=== PATIENT | male | born 1995 | race Caucasian/White ===

== ENCOUNTER 2016-12-17 03:44 | Inpatient (IN) | payer MEDICAID, OTHER ==
[~2016-12-17] VITALS: Ht 172.7 cm; Wt 49.5 kg
[2016-12-17] MEDS ORDERED: ESCI10TA55 PO (03:59)
[2016-12-17] MEDS ORDERED: INFL100V IV (03:59)
[2016-12-17] MEDS ORDERED: AZAT50TA PO (03:59)
[2016-12-17] MEDS ORDERED: NS IV 1000 ML 1,000 ML IV ONE (04:15)
[2016-12-17] MEDS ORDERED: fentaNYL INJECTION 100 MCG/2 ML AMP IVP ONE ×2 (04:15→06:00)
[2016-12-17 04:32] LABS: BASOPHILS % (AUTO) 0 % (0-10); EOSINOPHILS % (AUTO) 1 % (0-10); LYMPHOCYTES # (AUTO) 0.7 X 10^3 (1.0-4.0); LYMPHOCYTES % (AUTO) 17 % (12-44); MEAN CORPUSCULAR HEMOGLOBIN 30 PG (25-34); MEAN CORPUSCULAR HGB CONC 33 G/DL (32-36); MEAN CORPUSCULAR VOLUME 92 FL (80-99); MEAN PLATELET VOLUME 7.8 FL (7.4-10.4); MONOCYTES # (AUTO) 0.4 X 10^3 (0.0-1.0); MONOCYTES % (AUTO) 9 % (0-12); NEUTROPHILS # (AUTO) 3.2 X 10^3 (1.8-7.8); NEUTROPHILS % (AUTO) 74 % (42-75); PLATELET COUNT 356 10^3/uL (130-400); RED BLOOD COUNT 2.88 10^6/uL (4.35-5.85); RED CELL DISTRIBUTION WIDTH 20.9 % (10.0-14.5); WHITE BLOOD COUNT 4.3 10^3/uL (4.3-11.0)
--- NOTE | 2016-12-17 04:40 | ED Abdominal Pain ---
General Chief Complaint: Abdominal/GI Problems Stated Complaint: AB PAIN Nursing Triage Note: c/o abdomen pain that goes into testicles Sepsis Screen: No Definite Risk Source of Information: Patient Exam Limitations: No Limitations History of Present Illness Time Seen By Provider: 03:50 Initial Comments This 21-year-old young man is brought to the emergency room by his mother with complaints of abdominal pain that started about 4 days ago and became intense tonight around 01:00. Patient's history is sometimes a little bit distorted per his mother as he has mental retardation. He has a history of Crohn's disease and has had complications in the past including colitis with colon resection. He is on chronic immunosuppressive therapy. He is afebrile but is tachycardic. He denies any hematuria or hematochezia. He states pain is focused in the suprapubic and right lower quadrant regions but he is diffusely tender on exam. Allergies and Home Medications Allergies Coded Allergies: morphine (Verified Allergy, Unknown, 12/17/16) Home Medications Azathioprine 50 Mg Tablet, #60 (Reported) Escitalopram Oxalate 10 Mg Tablet, #30 (Reported) Infliximab 100 Mg Soln, 100 MG IV, (Reported) Review of Systems Constitutional: no symptoms reported EENTM: No Symptoms Reported Respiratory: No Symptoms Reported Cardiovascular: No Symptoms Reported Gastrointestinal: See HPI Genitourinary: No Symptoms Reported Musculoskeletal: no symptoms reported Skin: no symptoms reported Psychiatric/Neurological: See HPI Endocrine: No Symptoms Reported Past Hbfuxdp-Jasgbb-Cvwcjb Hx Patient Social History Alcohol Use: Denies Use Recreational Drug Use: No Smoking Status: Never a Smoker Recent Foreign Travel: No Contact w/Someone Who Travel: No Recent Infectious Disease Expo: No Recent Hopitalizations: No Surgeries HX Surgeries: Yes Surgeries: Abdominal (colectomy) Respiratory Hx Respiratory Disorders: No Cardiovascular Hx Cardiac Disorders: No Neurological Hx Neurological Disorders: Yes (mental retardation) Genitourinary Hx Genitourinary Disorders: No Gastrointestinal Hx Gastrointestinal Disorders: Yes Gastrointestinal Disorders: Crohns Disease Musculoskeletal Hx Musculoskeletal Disorders: No Endocrine Hx Endocrine Disorders: No HEENT HX ENT Disorders: No Cancer Hx Cancer: No Psychosocial Hx Psychiatric Problems: Yes (mental retardation) Behavioral Health Disorders: Depression Physical Exam Vital Signs VS - Last 72 Hours, by Label 12/17/16 03:57 Temp 98.4 Pulse 109 Resp 18 B/P (MAP) 121/81 Pulse Ox 97 Capillary Refill : Less Than 3 Seconds General Appearance: WD/WN, cachetic, mild distress HEENT: PERRL/EOMI, normal ENT inspection, pharynx normal Neck: normal inspection Respiratory: lungs clear, normal breath sounds, no respiratory distress, no accessory muscle use Cardiovascular: regular rate, rhythm, no edema, no murmur Gastrointestinal: abnormal bowel sounds (hyperactive bowel sounds), distended, tenderness (diffuse) Extremities: normal inspection, no pedal edema Male: normal genitalia, no hernia 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, alert, normal mood/affect, oriented x 3 Skin: warm/dry, pallor Progress/Results/Core Measures Results/Orders Lab Results Laboratory Tests Test 12/17/16 04:20 Range/Units White Blood Count 4.3 4.3-11.0 10^3/uL Red Blood Count 2.88 L 4.35-5.85 10^6/uL Hemoglobin 8.6 L 13.3-17.7 G/DL Hematocrit 26 L 40-54 % Mean Corpuscular Volume 92 80-99 FL Mean Corpuscular Hemoglobin 30 25-34 PG Mean Corpuscular Hemoglobin Concent 33 32-36 G/DL Red Cell Distribution Width 20.9 H 10.0-14.5 % Platelet Count 356 130-400 10^3/uL Mean Platelet Volume 7.8 7.4-10.4 FL Neutrophils (%) (Auto) 74 42-75 % Lymphocytes (%) (Auto) 17 12-44 % Monocytes (%) (Auto) 9 0-12 % Eosinophils (%) (Auto) 1 0-10 % Basophils (%) (Auto) 0 0-10 % Neutrophils # (Auto) 3.2 1.8-7.8 X 10^3 Lymphocytes # (Auto) 0.7 L 1.0-4.0 X 10^3 Monocytes # (Auto) 0.4 0.0-1.0 X 10^3 Eosinophils # (Auto) 0.0 0.0-0.3 10^3/uL Basophils # (Auto) 0.0 0.0-0.1 10^3/uL Erythrocyte Sedimentation Rate 68 H 0-15 MM/HR Sodium Level 133 L 135-145 MMOL/L Potassium Level 3.6 3.6-5.0 MMOL/L Chloride Level 101 98-107 MMOL/L Carbon Dioxide Level 23 21-32 MMOL/L Anion Gap 9 5-14 MMOL/L Blood Urea Nitrogen 13 7-18 MG/DL Creatinine 0.60 0.60-1.30 MG/DL Estimat Glomerular Filtration Rate > 60 BUN/Creatinine Ratio 22 Glucose Level 133 H 70-105 MG/DL Calcium Level 7.7 L 8.5-10.1 MG/DL Total Bilirubin 0.5 0.1-1.0 MG/DL Aspartate Amino Transf (AST/SGOT) 21 5-34 U/L Alanine Aminotransferase (ALT/SGPT) 21 0-55 U/L Alkaline Phosphatase 114 40-136 U/L C-Reactive Protein High Sensitivity 12.80 H 0.00-0.50 MG/DL Total Protein 5.8 L 6.4-8.2 GM/DL Albumin 2.0 L 3.2-4.5 GM/DL Lipase 4 L 8-78 U/L My Orders Orders - DARRYL STOVALL MD Ua Culture If Indicated (12/17/16 03:50) Cbc With Automated Diff (12/17/16 04:15) Comprehensive Metabolic Panel (12/17/16 04:15) Hs C Reactive Protein (12/17/16 04:15) Erythrocyte Sedimentation Rate (12/17/16 04:15) Saline Lock/Iv-Start (12/17/16 04:15) Ns Iv 1000 Ml (Sodium Chloride 0.9%) (12/17/16 04:15) Fentanyl Injection (Sublimaze Injection (12/17/16 04:15) Ct Abdomen/Pelvis W (12/17/16 04:27) Lipase (12/17/16 04:40) Blood Culture (12/17/16 05:46) Lactic Acid Analyzer (12/17/16 05:46) Piperacillin Sodium/Tazobactam (Zosyn Vi (12/17/16 06:00) Medications Given in ED Current Medications Medications Dose Ordered Sig/Jose Route Start Time Stop Time Status Last Admin Dose Admin Fentanyl Citrate 50 mcg ONCE ONCE IVP 12/17/16 04:15 12/17/16 04:16 DC 12/17/16 04:25 50 MCG Sodium Chloride 1,000 ml @ 0 mls/hr Q0M ONCE IV 12/17/16 04:15 7/16/17 04:16 DC 12/17/16 04:24 0 MLS/HR Vital Signs/I&O Vital Sign - Last 12Hours 12/17/16 03:57 Temp 98.4 Pulse 109 Resp 18 B/P (MAP) 121/81 Pulse Ox 97 Blood Pressure Mean: 94 Progress Note #1: Time: 04:39 Progress Note Patient is receiving IV fluids as he is tachycardic. Fentanyl is being administered for initial pain treatment. CT of the abdomen and pelvis has been ordered due to his distention and degree of tenderness on exam. Progress Note #2: Time: 05:49 Progress Note Pain is much improved after fentanyl. CT scan revealed a small bowel obstruction and possible abscess in the right lower abdomen. Case was reviewed with Dr. White his request antibiotic therapy with Zosyn. Blood cultures and lactic acid will be obtained. Patient is to be admitted to Dr. White's service. Diagnostic Imaging Diagonstic Imaging: CT Plain Films/CT/US/NM/MRI: abdomen, pelvis Comments CT abdomen and pelvis viewed by me and [facility] report reviewed. There are markedly distended fluid-filled distal small bowel loops with a point of transition in the terminal ileum or cecum. There is marked wall thickening with adjacent fat stranding at the point of transition. Findings are consistent with high-grade distal small bowel obstruction possibly due to stricture or severe focal enteritis. Correlation with history of IBD is recommended as this could represent a flareup. There is a loculated gas and fluid collection along the right lateral abdominal wall, abutting the iliac crest. The collection measures up to 2.4 x 5.7 cm and is most consistent with abscess. Departure Communication Time/Spoke to Admitting Phy: 05:[address] White. Impression Impression: Primary Impression: Small bowel obstruction Additional Impressions: Exacerbation of Crohn's disease Qualified Codes: K50.919 - Crohn's disease, unspecified, with unspecified complications Anemia Qualified Codes: D64.9 - Anemia, unspecified Disposition: ADMITTED INPATIENT Condition: Improved Decision to Admit Reason: Admit from ER (General) Decision to Admit/Date: Dec 17, 2016 Time/Decision to Admit Time: 05:49 Departure-Patient Inst. Referrals: NO,LOCAL PHYSICIAN (PCP) Primary Care Physician DARRYL STOVALL MD Dec 17, 2016 04:40
[2016-12-17 04:56] LABS: ERYTHROCYTE SEDIMENTATION RATE 68 MM/HR (0-15)
[2016-12-17 05:02] LABS: ALANINE AMINOTRANSFERASE 21 U/L (0-55); ANION GAP 9 MMOL/L (5-14); ASPARTATE AMINO TRANSFERASE 21 U/L (5-34); BILIRUBIN,TOTAL 0.5 MG/DL (0.1-1.0); BLOOD UREA NITROGEN 13 MG/DL (7-18); BUN/CREATININE RATIO 22; CALCIUM 7.7 MG/DL (8.5-10.1); CARBON DIOXIDE 23 MMOL/L (21-32); CHLORIDE 101 MMOL/L (98-107); GFR ESTIMATED > 60; GLUCOSE 133 MG/DL (70-105); POTASSIUM 3.6 MMOL/L (3.6-5.0); SODIUM 133 MMOL/L (135-145); TOTAL PROTEIN 5.8 GM/DL (6.4-8.2)
[2016-12-17] MEDS ORDERED: PIPERACILLIN SODIUM/TAZOBACTAM 4.5 GM in NS (IVPB) 100 ML IV ONE (06:00)
[2016-12-17] MEDS ORDERED: D5 1/2 NS W/KCL 20 MEQ/L 1,000 ML IV ONE (07:33)
--- NOTE | 2016-12-17 07:33 | Diagnostic Imaging Report ---
PROCEDURE: CT abdomen and pelvis with contrast. TECHNIQUE: Multiple contiguous axial images were obtained through the abdomen and pelvis after administration of intravenous contrast. INDICATION: Abdominal pain. No prior examinations are available for comparison. FINDINGS: The heart size is normal. The lung bases are clear. The liver is normal in size without focal lesions. The gallbladder is unremarkable. There is no biliary duct dilatation. The spleen is normal. The pancreas, adrenal glands, and kidneys are unremarkable. Specifically, there is no evidence of obstructive uropathy. The abdominal aorta is nonaneurysmal. There are markedly distended fluid-filled loops of distal small bowel with a transition point near the terminal ileum and/or cecum. There is marked wall thickening with adjacent fat stranding near the transition. Findings are consistent with high-grade distal small bowel obstruction possibly due to stricture or focal enteritis. Additionally, there is a loculated gas/fluid collection along the right lateral abdominal wall abutting the iliac crest. This measures 2.4 x 5.7 cm and is most suspect for abscess. There is no pelvic mass or adenopathy. The osseous structures are unremarkable. IMPRESSION: Findings compatible with high-grade small bowel obstruction with a transition point near the terminal ileum. Additionally, there is an abnormal fluid collection adjacent to the iliac crest suspect for abscess. The etiology of the obstruction may be stricture or severe focal enteritis. Recommend clinical correlation with patient's history of inflammatory bowel disease specifically Crohn's disease as this could certainly reflect a exacerbation. Dictated by: Dictated on workstation # [id number]
[2016-12-17 07:45] VITALS: BP 96/57
[2016-12-17] MEDS: D5 1/2 NS W/KCL 20 MEQ/L 1,000 ML IV SCH ×2 (07:59→17:32)
[2016-12-17] MEDS ORDERED: PIPERACILLIN/TAZOBACTAM 4.5 GM/NS 100 ML IV NR ×2 (08:00)
[2016-12-17] MEDS ORDERED: fentaNYL INJECTION 100 MCG/2 ML AMP IV PRN (08:00)
[2016-12-17] MEDS ORDERED: PANTOPRAZOLE 40 MG/10 ML (PROTONIX) VIAL IV SCH (09:00)
[2016-12-17] MEDS: PANTOPRAZOLE 40 MG/10 ML (PROTONIX) VIAL IV SCH (11:46)
[2016-12-17 12:30] VITALS: BP 103/60
[2016-12-17] MEDS: PIPERACILLIN/TAZOBACTAM 4.5 GM/NS100 ML IVPB IV SCH ×4 (13:04→21:58)
[2016-12-17] MEDS ORDERED: OMG1KC PO (13:55)
[2016-12-17] MEDS ORDERED: CHOL400T3 PO (13:55)
--- NOTE | 2016-12-17 14:16 | History & Physical-Surgical ---
History of Present Illness History of Present Illness Reason for visit/HPI Pt is a 21-year-old young man who was brought to the emergency room by his mother with complaints of abdominal pain that started about 4 days ago and became intense last night around 01:00 am. Patient's history is sometimes a little bit distorted per his mother as he has mental retardation. He has a history of Crohn's disease and has had complications in the past including colitis with colon resection. He had an initial surgery at about 7 yo, mother is not exactly sure what was removed. He is on chronic immunosuppressive therapy; Remicade monthly and Azathioprine. He last saw his GI doctor (in [place]) appx 2 1/2 months ago and has appt at the end of this month. Last night he was afebrile but tachycardic. He denies any hematuria or hematochezia. Last night his pain was focused in the suprapubic and right lower quadrant regions. He still has abominal pain diffusely today. States he doesn't think he has ever had an episode like this; with abdominal distention he has now. Slight nausea, no vomiting. He did have BM yesterday. Rating the pain as 7 out of 10 , but goes up to 10 if he tries to walk. Mother said she hasn't seen him walk in 3-4 days because of pain. Date of Admission Dec 17, 2016 at 05:49 Time Seen by Provider: 11:06 I consulted on this patient on 12/17/16 14:09 Attending Physician Alfredo White DO Admitting Physician No,Local Physician Consult Allergies and Home Medications Allergies Coded Allergies: morphine (Verified Allergy, Unknown, 12/17/16) Home Medications Azathioprine 50 Mg Tablet, 50 MG PO DAILY, #60 (Reported) Cholecalciferol (Vitamin D3) 400 Unit Tab.chew, 400 UNIT PO DAILY, (Reported) Escitalopram Oxalate 10 Mg Tablet, #30 (Reported) Infliximab 100 Mg Soln, 100 MG IV, (Reported) [place] 3 Polyunsat Fatty Acids 1,000 Mg Cap, 1,000 MG PO DAILY, (Reported) Past Uqldfzq-Wpbvuo-Szqnln Hx Patient Social History Alcohol Use: Denies Use Recreational Drug Use: No Smoking Status: Never a Smoker Recent Foreign Travel: No Contact w/Someone Who Travel: No Recent Infectious Disease Expo: No Recent Hopitalizations: No Physical Abuse Screen: No Sexual Abuse: No Immunizations Up To Date PED Vaccines UTD: No Seasonal Allergies Seasonal Allergies: No Surgeries HX Surgeries: Yes Surgeries: Abdominal (colectomy) Respiratory Hx Respiratory Disorders: No Cardiovascular Hx Cardiac Disorders: No Neurological Hx Neurological Disorders: Yes (mental retardation) Reproductive System Sexually Transmitted Disease: No HIV/AIDS: No Genitourinary Hx Genitourinary Disorders: No Gastrointestinal Hx Gastrointestinal Disorders: Yes Gastrointestinal Disorders: Crohns Disease Musculoskeletal Hx Musculoskeletal Disorders: No Endocrine Hx Endocrine Disorders: No HEENT HX ENT Disorders: No Cancer Hx Cancer: No Psychosocial Hx Psychiatric Problems: Yes (mental retardation) Behavioral Health Disorders: Depression Blood Transfusions Adverse Reaction to a Blood Tr: No Family Medical History Significant Family History: Diabetes (father) Family Medial History: Diabetes mellitus 19 FATHER Hypertension 19 FATHER Constitutional: No chills, No diaphoresis, malaise, weakness, weight loss EENTM: No blurred vision, No epistaxis, No mouth pain, No mouth swelling, No throat swelling Respiratory: No cough, No dyspnea on exertion, No hemoptysis Cardiovascular: No chest pain, No edema, No palpitations Gastrointestinal: abdominal pain, No hematemesis, No jaundice, loss of appetite , nausea, vomiting Genitourinary: No discharge, No dysuria, No frequency, No hematuria Musculoskeletal: No back pain, joint pain, muscle stiffness Skin: No change in color, No change in hair/nails Psychiatric/Neurological: Denies Anxiety, Denies Depressed, Denies Seizure, Denies Tremors Other no abnormal bleeding or bruising. No heat or cold intolerance Physical Exam Vital Signs Vital Sign - Last 12Hours 12/17/16 03:57 Temp 98.4 Pulse 109 Resp 18 B/P (MAP) 121/81 Pulse Ox 97 Capillary Refill : Less Than 3 Seconds General Appearance: No Apparent Distress, Cachetic, Thin Eyes: Bilateral Eye EOMI, Bilateral Eye PERRL HEENT: Pharynx Normal, Pale Conjunctivae (L), Pale Conjunctivae (R), No Scleral Icterus (L), No Scleral Icterus (R) Respiratory: Chest Non Tender, Lungs Clear, Normal Breath Sounds, No Accessory Muscle Use, No Respiratory Distress Cardiovascular: Regular Rate, Rhythm, No Murmur, Normal Peripheral Pulses Gastrointestinal: No Organomegaly, Soft, Abnormal Bowel Sounds (decreased), Distended, No Rebound Rectal: Deferred Back: No CVA Tenderness, No Vertebral Tenderness Extremity: Normal Capillary Refill, Normal Range of Motion, Non Tender, No Calf Tenderness Neurologic/Psychiatric: Alert, Oriented x3, No Motor/Sensory Deficits, Normal 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, 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 as Tested Skin: Warm/Dry, Pallor Lymphatic: No Adenopathy (neck axilla or groin) Data Review Labs Laboratory Tests 12/17/16 04:20: White Blood Count 4.3, Red Blood Count 2.88L, Hemoglobin 8.6L, Hematocrit 26L, Mean Corpuscular Volume 92, Mean Corpuscular Hemoglobin 30, Mean Corpuscular Hemoglobin Concent 33, Red Cell Distribution Width 20.9H, Platelet Count 356, Mean Platelet Volume 7.8, Neutrophils (%) (Auto) 74, Lymphocytes (%) (Auto) 17, Monocytes (%) (Auto) 9, Eosinophils (%) (Auto) 1, Basophils (%) (Auto) 0, Neutrophils # (Auto) 3.2, Lymphocytes # (Auto) 0.7L, Monocytes # (Auto) 0.4, Eosinophils # (Auto) 0.0, Basophils # (Auto) 0.0, Erythrocyte Sedimentation Rate 68H, Sodium Level 133L, Potassium Level 3.6, Chloride Level 101, Carbon Dioxide Level 23, Anion Gap 9, Blood Urea Nitrogen 13, Creatinine 0.60, Estimat Glomerular Filtration Rate > 60, BUN/Creatinine Ratio 22, Glucose Level 133H, Calcium Level 7.7L, Total Bilirubin 0.5, Aspartate Amino Transf (AST/SGOT) 21, Alanine Aminotransferase (ALT/SGPT) 21, Alkaline Phosphatase 114, C-Reactive Protein High Sensitivity 12.80H, Total Protein 5.8L, Albumin 2.0L, Lipase 4L 12/17/16 05:55: Lactic Acid Level 0.47L Radiology Findings compatible with high-grade small bowel obstruction with a transition point near the terminal ileum. Additionally, there is an abnormal fluid collection adjacent to the iliac crest suspect for abscess. The etiology of the obstruction may be stricture or severe focal enteritis. Recommend clinical correlation with patient's history of inflammatory bowel disease specifically Crohn's disease as this could certainly reflect a exacerbation. Assessment/Plan Assessment/Plan Assessment/Plan 1. Partial small bowel obstruction; may be high grade 2. Questionable abscess collection 3. Hx of Crohns Plan is NG tube, ice chips, ok to chew gum. Pain control. Will repeat abdominal xray in am. Discuss with IR possible drainage of abscess. Will monitor and see if this can resolve on its own. I spoke with pt and his mother and surgery is last option; because unfortunately will just cause more adhesions and could flare or worsen his Crohn's. Specifically increase risk of strictures. May try to call his GI doctor tomorrow and find out about adding on some steroids. Also will consider small bowel follow thru with gastrograffin; which may have added benefit of helpig bowel function. All questions answered to their satisfaction. Will also continue IV fluids. Will need increased protein at some point. ALFREDO WHITE DO Dec 17, 2016 14:16
[2016-12-17] MEDS: fentaNYL INJECTION 100 MCG/2 ML AMP IV PRN ×6 (15:09→23:58)
--- NOTE | 2016-12-17 15:44 | Diagnostic Imaging Report ---
INDICATION: Bowel obstruction. COMPARISON: None. FINDINGS: KUB and upright views of the abdomen demonstrate NG tube in the stomach. Contrast is seen in the urinary bladder. There are multiple loops of distended bowel with air-fluid levels. There is no free air. IMPRESSION: Bowel obstruction with interval placement of an NG tube. Dictated by: Dictated on workstation # [id number]
[2016-12-17 16:13] VITALS: BP 104/59
[2016-12-17 20:20] VITALS: BP 109/66
[2016-12-17 23:40] VITALS: BP 104/66
[2016-12-18] VITALS (10 sets, daily range): BP systolic 96–115; BP diastolic 55–67
[2016-12-18] MEDS: fentaNYL INJECTION 100 MCG/2 ML AMP IV PRN ×9 (02:05→20:58)
[2016-12-18] MEDS: D5 1/2 NS W/KCL 20 MEQ/L 1,000 ML IV SCH ×2 (03:34→14:35)
[2016-12-18 04:57] LABS: BASOPHILS % (AUTO) 0 % (0-10); EOSINOPHILS # (AUTO) 0.1 10^3/uL (0.0-0.3); EOSINOPHILS % (AUTO) 4 % (0-10); LYMPHOCYTES # (AUTO) 0.6 X 10^3 (1.0-4.0); LYMPHOCYTES % (AUTO) 20 % (12-44); MEAN CORPUSCULAR HEMOGLOBIN 30 PG (25-34); MEAN CORPUSCULAR HGB CONC 31 G/DL (32-36); MEAN CORPUSCULAR VOLUME 94 FL (80-99); MEAN PLATELET VOLUME 8.1 FL (7.4-10.4); MONOCYTES # (AUTO) 0.3 X 10^3 (0.0-1.0); MONOCYTES % (AUTO) 9 % (0-12); NEUTROPHILS % (AUTO) 67 % (42-75); PLATELET COUNT 293 10^3/uL (130-400); RED BLOOD COUNT 2.57 10^6/uL (4.35-5.85); RED CELL DISTRIBUTION WIDTH 21.5 % (10.0-14.5)
[2016-12-18] MEDS: PIPERACILLIN/TAZOBACTAM 4.5 GM/NS100 ML IVPB IV SCH ×6 (05:54→21:41)
[2016-12-18] MEDS: PANTOPRAZOLE 40 MG/10 ML (PROTONIX) VIAL IV SCH (07:51)
[2016-12-18] MEDS: ONDANSETRON 4 MG/2 ML (SDV) Z0FRAN IV PRN ×3 (07:52→20:58)
[2016-12-18] MEDS ORDERED: CYAN10006 PO (08:11)
[2016-12-18] MEDS ORDERED: FERR-84 PO (08:11)
--- NOTE | 2016-12-18 12:09 | Progress Note ---
Subjective Time Seen by Provider: 11:49 Subjective/Events-last exam Pt seen and examined, states pain is about the same; controlled with meds. He reports he did have a small BM, but "it was an accident". He also is hungry and wants to eat. He has not really been walking around. Urinating without difficulty. He thinks his belly may be a little smaller. Review of Systems General: No Chills, No Night Sweats HEENT: No Head Aches, No Sinus Congestion, Other (NGT in place) Pulmonary: No Dyspnea, No Cough Cardiovascular: No: Chest Pain, Palpitations Gastrointestinal: Abdominal Pain (maybe slightly improved), No: Nausea, Vomiting Objective Exam Vital Signs Date Time Temp Pulse Resp B/P (MAP) Pulse Ox O2 Delivery O2 Flow Rate FiO2 12/18/16 08:00 99.3 103 20 113/67 98 Room Air 12/18/16 04:10 99.1 98 20 115/66 98 Room Air 12/17/16 23:40 99.5 104 18 104/66 97 Room Air 12/17/16 20:20 Room Air 12/17/16 20:20 99.1 103 18 109/66 100 Room Air 12/17/16 16:13 97.0 89 12 104/59 100 Room Air 12/17/16 12:30 97.7 77 14 103/60 100 Room Air I & O 12/18/16 07:00 Intake Total 1330 ml Output Total 225 ml Balance 1105 ml Capillary Refill : Less Than 3 Seconds General Appearance: No Apparent Distress, Cachetic, Thin HEENT: Pharynx Normal, Pale Conjunctivae (L), Pale Conjunctivae (R), No Scleral Icterus (L), No Scleral Icterus (R) Respiratory: Chest Non Tender, Lungs Clear, Normal Breath Sounds, No Accessory Muscle Use, No Respiratory Distress Cardiovascular: Regular Rate, Rhythm, No Murmur, Normal Peripheral Pulses Gastrointestinal: abnormal bowel sounds (hyperactive bowel sounds), distended ( slightly less than yesterday), tenderness (diffuse) Extremity: Normal Capillary Refill, Normal Range of Motion, Non Tender, No Calf Tenderness Neurologic/Psychiatric: Alert, Oriented x3, No Motor/Sensory Deficits, Normal Mood/Affect, 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 Norm as Tested Skin: Warm/Dry, Pallor Lymphatic: No Adenopathy (neck axilla or groin) Results Lab Laboratory Tests 12/18/16 04:26: White Blood Count 3.0L, Red Blood Count 2.57L, Hemoglobin 7.6L, Hematocrit 24L, Mean Corpuscular Volume 94, Mean Corpuscular Hemoglobin 30, Mean Corpuscular Hemoglobin Concent 31L, Red Cell Distribution Width 21.5H, Platelet Count 293, Mean Platelet Volume 8.1, Neutrophils (%) (Auto) 67, Lymphocytes (%) (Auto) 20, Monocytes (%) (Auto) 9, Eosinophils (%) (Auto) 4, Basophils (%) (Auto) 0, Neutrophils # (Auto) 2.0, Lymphocytes # (Auto) 0.6L, Monocytes # (Auto) 0.3, Eosinophils # (Auto) 0.1, Basophils # (Auto) 0.0 Assessment/Plan Assessment/Plan Assessment/Plan 1. Partial small bowel obstruction; may be high grade - no significant improvement today 2. Abscess collection in right flank/abdomen - went over with Radiologist 3. Hx of Crohns Plan is to continue NG tube, ice chips, ok to chew gum. Pain control. Will repeat abdominal xray in am. IR will attempt drainage of abscess. Will continue to monitor and hope this resolves on its own. I spoke with pt, his mother and father; again explaining surgery is last option; because unfortunately will just cause more adhesions and could flare or worsen his Crohn's. Specifically increase risk of strictures. I called Dr. Casanova (GI doctor in [place]) awaitin his call regarding possible steroids or other to decrease flare-up/inflammation. Also will consider small bowel follow thru with gastrograffin; which may have added benefit of helpig bowel function. All questions answered to their satisfaction. Will also continue IV fluids. Will need increased protein at some point. Clinical Quality Measures DVT/VTE Risk/Contraindication: Risk Factor Score Per Nursin RFS Level Per Nursing on Admit: 1=Low/No VTE PPX DARCI MAR DO Dec 18, 2016 12:09
[2016-12-18] MEDS ORDERED: LIDOCAINE 1% INJ 20 ML (XYLOCAINE) VIAL INJ ONE (12:15)
[2016-12-18] MEDS ORDERED: fentaNYL INJECTION 100 MCG/2 ML AMP ONE (12:44)
[2016-12-18] MEDS: fentaNYL INJECTION 100 MCG/2 ML AMP IVP PRN ×2 (13:23→13:34)
--- NOTE | 2016-12-18 13:50 | Pre-Procedure Progress Note ---
Pre-Procedure Progress Note H&P Reviewed The H&P was reviewed, patient examined and no changes noted. Date H&P Reviewed: Dec 18, 2016 Time H&P Reviewed: 13:00 Pre-Procedure Diagnosis: RLQ abscess JACK RIGGS MD Dec 18, 2016 13:50
[2016-12-18] MEDS: methylPREDNISolone 40 MG/ML (Solu-MEDROL) VIAL IV SCH ×2 (14:35→21:41)
--- NOTE | 2016-12-18 15:33 | Diagnostic Imaging Report ---
EXAMINATION: CT-guided drain placement. Abdominal abscess. INDICATION: Right lower quadrant abscess. History of Crohn's disease. The patient's vital signs, cardiac rhythm, and pulse oximetry with observed throughout the procedure by qualified nursing personnel. Sedation/medications: Fentanyl 25 mcg IV. CONSENT: Informed consent was obtained from the patient. The risks, benefits, potential complications and alternatives were reviewed and all questions answered to the patient's satisfaction. FINDINGS: Right lower quadrant abscess. PROCEDURE: After maximal sterile barrier preparation and draping, 1% lidocaine was utilized for local anesthesia. With the patient in supine position, anterior approach was selected. A 19-gauge Yueh sheathed needle was introduced utilizing CT guidance into the right lower quadrant abscess. CT images confirm appropriate positioning. After standard over a guidewire exchange technique and after serial dilatation, a 12 [place]e drain is placed and distal loop formed in the collection. A 30 ml of foul-smelling samuel purulent fluid is aspirated and sent to microbiology. The drainage catheter is connected to suction type draining bag. The patient tolerated the procedure well with no immediate complications. IMPRESSION: Successful CT-guided, 12 Gabonese, drain placement in right lower quadrant abscess. Dictated by: Dictated on workstation # [id number]
[2016-12-19] MEDS: fentaNYL INJECTION 100 MCG/2 ML AMP IV PRN ×5 (00:06→20:27)
[2016-12-19] MEDS: D5 1/2 NS W/KCL 20 MEQ/L 1,000 ML IV SCH ×3 (00:07→20:27)
[2016-12-19 03:29] VITALS: BP 98/61
[2016-12-19] MEDS: methylPREDNISolone 40 MG/ML (Solu-MEDROL) VIAL IV SCH ×3 (05:29→21:36)
[2016-12-19] MEDS: PIPERACILLIN/TAZOBACTAM 4.5 GM/NS100 ML IVPB IV SCH ×6 (05:29→21:36)
[2016-12-19 08:00] VITALS: BP 98/60
--- NOTE | 2016-12-19 08:50 | Diagnostic Imaging Report ---
Indication: Small bowel obstruction. Comparison: 12/17/2016 Findings: Multiple supine and upright radiographic views of the abdomen were obtained. Since prior exam, there has been interval placement of pigtail drainage catheter on the right. Small bowel continues to demonstrate diffuse distention. Multiple air-fluid levels are again identified. Overall, appearance has not significantly changed when compared to prior exam. Indwelling NG/OG tube is again identified and appears to be in stable position. Included portions of the lung bases are clear. IMPRESSION: 1. Persistent overall stable appearing obstructed appearance of the small bowel. 2. New pigtail drainage catheter within the right lower abdominal quadrant. Dictated by: Dictated on workstation # [id number]
[2016-12-19] MEDS: PANTOPRAZOLE 40 MG/10 ML (PROTONIX) VIAL IV SCH (09:19)
[2016-12-19 09:58] LABS: MEAN PLATELET VOLUME 8.7 FL (7.4-10.4); RED BLOOD COUNT 2.92 10^6/uL (4.35-5.85); RED CELL DISTRIBUTION WIDTH 20.9 % (10.0-14.5); WHITE BLOOD COUNT 3.1 10^3/uL (4.3-11.0)
[2016-12-19 10:23] LABS: ANION GAP 4 MMOL/L (5-14); BLOOD UREA NITROGEN 8 MG/DL (7-18); BUN/CREATININE RATIO 14; CARBON DIOXIDE 26 MMOL/L (21-32); CHLORIDE 104 MMOL/L (98-107); CREATININE SERUM 0.59 MG/DL (0.60-1.30); POTASSIUM 4.7 MMOL/L (3.6-5.0); SODIUM 134 MMOL/L (135-145)
[2016-12-19 10:24] LABS: ALANINE AMINOTRANSFERASE 13 U/L (0-55); ALBUMIN 1.7 GM/DL (3.2-4.5); ASPARTATE AMINO TRANSFERASE 10 U/L (5-34); BILIRUBIN,TOTAL 0.3 MG/DL (0.1-1.0); CALCIUM 7.9 MG/DL (8.5-10.1); GFR ESTIMATED > 60; GLUCOSE 133 MG/DL (70-105); TOTAL PROTEIN 5.1 GM/DL (6.4-8.2)
[2016-12-19] MEDS: ONDANSETRON 4 MG/2 ML (SDV) Z0FRAN IV PRN ×2 (11:50→18:11)
[2016-12-19 12:00] VITALS: BP 97/60
--- NOTE | 2016-12-19 13:47 | Progress Note ---
Subjective Time Seen by Provider: 12:51 Subjective/Events-last exam Pt seen and examined. States he is hungry and wants to eat. Thinks the abdominal pain is better. He reports small to medium BM and flatus. Thinks stomach might be a little smaller. Review of Systems General: No Chills, No Night Sweats, Fatigue HEENT: No Head Aches Pulmonary: No Dyspnea, No Cough Cardiovascular: No: Chest Pain, Palpitations Gastrointestinal: Abdominal Pain (minimal), No: Nausea, Vomiting Objective Exam Vital Signs Date Time Temp Pulse Resp B/P (MAP) Pulse Ox O2 Delivery O2 Flow Rate FiO2 12/19/16 08:00 95.8 56 16 98/60 99 Room Air 12/19/16 03:29 96.4 56 18 98/61 100 Room Air 12/18/16 23:40 96.3 61 16 103/65 98 Room Air 12/18/16 20:05 98.0 71 18 97/60 97 Room Air 12/18/16 20:00 Room Air 12/18/16 15:15 96.0 87 18 104/59 96 Room Air I & O 12/19/16 07:00 Intake Total 50 ml Output Total 1690 ml Balance -1640 ml Capillary Refill : Less Than 3 Seconds General Appearance: No Apparent Distress, Cachetic, Thin HEENT: Pharynx Normal, Pale Conjunctivae (L), Pale Conjunctivae (R), No Scleral Icterus (L), No Scleral Icterus (R) Respiratory: Chest Non Tender, Lungs Clear, Normal Breath Sounds, No Accessory Muscle Use, No Respiratory Distress Cardiovascular: Regular Rate, Rhythm, No Murmur, Normal Peripheral Pulses Gastrointestinal: abnormal bowel sounds (hyperactive bowel sounds), distended ( slightly less than yesterday), tenderness (diffuse) Extremity: Normal Capillary Refill, Normal Range of Motion, Non Tender, No Calf Tenderness Neurologic/Psychiatric: Alert, Oriented x3, No Motor/Sensory Deficits, Normal Mood/Affect, 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 Norm as Tested Skin: Warm/Dry, Pallor Lymphatic: No Adenopathy (neck axilla or groin) Results Lab Laboratory Tests 12/19/16 09:50: White Blood Count 3.1L, Red Blood Count 2.92L, Hemoglobin 8.6L, Hematocrit 27L, Mean Corpuscular Volume 94, Mean Corpuscular Hemoglobin 30, Mean Corpuscular Hemoglobin Concent 32, Red Cell Distribution Width 20.9H, Platelet Count 335, Mean Platelet Volume 8.7, Sodium Level 134L, Potassium Level 4.7, Chloride Level 104, Carbon Dioxide Level 26, Anion Gap 4L, Blood Urea Nitrogen 8, Creatinine 0.59L, Estimat Glomerular Filtration Rate > 60, BUN/Creatinine Ratio 14, Glucose Level 133H, Calcium Level 7.9L, Total Bilirubin 0.3, Aspartate Amino Transf (AST/SGOT) 10, Alanine Aminotransferase (ALT/SGPT) 13, Alkaline Phosphatase 84, Total Protein 5.1L, Albumin 1.7L Microbiology 12/17/16 Blood Culture - Preliminary, Resulted No growth 12/18/16 Gram Stain - Final, Resulted 12/18/16 Anaerobic Culture, Resulted Pending 12/18/16 Wound Culture - Preliminary, Resulted Strep Or Related Genus Assessment/Plan Assessment/Plan Assessment/Plan 1. Partial small bowel obstruction; may be high grade - questionable improvement today 2. Abscess collection in right flank/abdomen - s/p IR drainage of samuel pus, sent to microbiology 3. Anemia of chronic disease 4. Hx of Crohns- this is probably a stricture because of Crohn's started on Solumedrol yesterday Plan is to continue NG tube, ice chips, ok to chew gum. Pain control. Will repeat abdominal xray in am, may try SBFT tomorrow. Will continue to monitor and hope this resolves on its own. I spoke with pt and his mother and we may be forced to do surgery if it is not improving significantly; unfortunately surgery does cause adhesions and could flare or worsen his Crohn's. Specifically increase risk of strictures. When I spoke with Dr. Casanova (GI doctor in [place]) he mentioned that the pt. was failing outpt therapy (would probably try a new medication), but that he thought he may need surgery. Hopefully gastrograffin will help with return of bowel function. All questions answered to their satisfaction. Will also continue IV fluids. Will need increased protein at some point as soon as he can eat. Clinical Quality Measures DVT/VTE Risk/Contraindication: Risk Factor Score Per Nursin RFS Level Per Nursing on Admit: 1=Low/No VTE PPX DARCI MAR DO Dec 19, 2016 13:47
[2016-12-19 15:56] VITALS: BP 99/61
[2016-12-19 19:11] VITALS: BP 97/60
[2016-12-19 23:50] VITALS: BP 91/58
[2016-12-20] MEDS: fentaNYL INJECTION 100 MCG/2 ML AMP IV PRN ×8 (00:21→23:05)
[2016-12-20 04:25] VITALS: BP 97/59
[2016-12-20] MEDS: D5 1/2 NS W/KCL 20 MEQ/L 1,000 ML IV SCH (05:52)
[2016-12-20] MEDS: PIPERACILLIN/TAZOBACTAM 4.5 GM/NS100 ML IVPB IV SCH ×2 (05:53)
[2016-12-20] MEDS: methylPREDNISolone 40 MG/ML (Solu-MEDROL) VIAL IV SCH ×3 (05:53→21:04)
[2016-12-20 07:26] VITALS: BP_SYST 79; BP_SYST 94; BP_DIAS 49; BP_DIAS 58
[2016-12-20] MEDS: PANTOPRAZOLE 40 MG/10 ML (PROTONIX) VIAL IV SCH (08:02)
--- NOTE | 2016-12-20 11:29 | Progress Note ---
Subjective Time Seen by Provider: 11:11 Subjective/Events-last exam Pt seen and examined, very hungry. He reports 2 BM's yesterday afternoon and one last night. He denies pain, nausea or vomiting. Review of Systems General: No Chills, No Night Sweats HEENT: No Head Aches, No Eye Pain Pulmonary: No Dyspnea, No Cough Cardiovascular: No: Chest Pain, Palpitations Gastrointestinal: No: Abdominal Pain, Nausea, Vomiting Genitourinary: No Dysuria, No Frequency Objective Exam Vital Signs Date Time Temp Pulse Resp B/P (MAP) Pulse Ox O2 Delivery O2 Flow Rate FiO2 12/20/16 07:26 97.6 45 22 94/58 98 Room Air 12/20/16 04:25 96.9 72 20 97/59 98 Room Air 12/19/16 23:50 96.9 61 18 91/58 98 Room Air 12/19/16 20:30 Room Air 12/19/16 19:11 96.8 60 16 97/60 97 12/19/16 15:56 96.9 62 16 99/61 98 12/19/16 12:00 97.0 78 20 97/60 98 Room Air I & O 12/20/16 07:00 Intake Total 3330 ml Output Total 1770 ml Balance 1560 ml Capillary Refill : Less Than 3 Seconds General Appearance: No Apparent Distress, Cachetic, Thin HEENT: Pharynx Normal, Pale Conjunctivae (L), Pale Conjunctivae (R), No Scleral Icterus (L), No Scleral Icterus (R) Respiratory: Chest Non Tender, Lungs Clear, Normal Breath Sounds, No Accessory Muscle Use, No Respiratory Distress Cardiovascular: Regular Rate, Rhythm, No Murmur, Normal Peripheral Pulses Gastrointestinal: normal bowel sounds, non tender, soft (no longer distended and very soft), no organomegaly Extremity: Normal Capillary Refill, Normal Range of Motion, Non Tender, No Calf Tenderness Neurologic/Psychiatric: Alert, Oriented x3, No Motor/Sensory Deficits, Normal 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 Partial small bowel obstruction; seems to be resolving 2. Abscess collection in right flank/abdomen - s/p IR drainage of samuel pus, sent to microbiology. No drainage of purulent fluid, since initial drainage 3. Anemia of chronic disease 4. Hx of Crohns- this is probably a stricture because of Crohn's started on Solumedrol yesterday Plan is to clamp NG tube, start clear liquid diet now and soft for dinner. Will hold abdominal xray and SBFT Will continue steroids, heplock IV and stop ABX. Will need increased protein; will add ensure clear now. Clinical Quality Measures DVT/VTE Risk/Contraindication: Risk Factor Score Per Nursin RFS Level Per Nursing on Admit: 1=Low/No VTE PPX DARCI MAR DO Dec 20, 2016 11:29
[2016-12-20 12:00] VITALS: BP 99/60
[2016-12-20 16:00] VITALS: BP 96/60
[2016-12-20 20:02] VITALS: BP 110/70
[2016-12-21] VITALS: BP 104/64
[2016-12-21 04:00] VITALS: BP 108/69
[2016-12-21] MEDS: fentaNYL INJECTION 100 MCG/2 ML AMP IV PRN ×3 (04:14→07:41)
[2016-12-21] MEDS: methylPREDNISolone 40 MG/ML (Solu-MEDROL) VIAL IV SCH (06:00)
[2016-12-21 08:00] VITALS: BP 117/56
[2016-12-21] MEDS: PANTOPRAZOLE 40 MG/10 ML (PROTONIX) VIAL IV SCH (08:09)
[2016-12-21 08:58] VITALS: BP 97/57
--- NOTE | 2016-12-21 11:13 | Progress Note ---
Subjective Time Seen by Provider: 09:26 Subjective/Events-last exam Pt seen and examined, still having BM's and tolerating soft diet. Denies nausea or vomiting. I asked him about pain; he said his throat was bothering him and his side where drain was placed. No real abdominal pain. Review of Systems General: No Chills, No Night Sweats HEENT: No Head Aches, No Visual Changes Pulmonary: No Dyspnea, No Cough Cardiovascular: No: Chest Pain, Palpitations Gastrointestinal: No: Abdominal Pain, Nausea, Vomiting Objective Exam Vital Signs Date Time Temp Pulse Resp B/P (MAP) Pulse Ox O2 Delivery O2 Flow Rate FiO2 12/21/16 08:58 96.5 60 18 97/57 99 Room Air 12/21/16 08:00 98.1 90 20 117/56 93 Room Air 12/21/16 08:00 99 Room Air 12/21/16 04:00 96.6 61 20 108/69 99 Room Air 12/21/16 00:00 98.8 56 18 104/64 99 Room Air 12/20/16 20:55 Room Air 12/20/16 20:02 98.0 95 20 110/70 96 Room Air 12/20/16 16:00 96.6 86 18 96/60 97 Room Air 12/20/16 12:00 98.0 55 20 99/60 98 Room Air I & O 12/21/16 07:00 Intake Total 1480 ml Output Total 1310 ml Balance 170 ml Capillary Refill : Less Than 3 Seconds General Appearance: No Apparent Distress, Cachetic, Thin HEENT: Pharynx Normal, Pale Conjunctivae (L), Pale Conjunctivae (R), No Scleral Icterus (L), No Scleral Icterus (R) Respiratory: Chest Non Tender, Lungs Clear, Normal Breath Sounds, No Accessory Muscle Use, No Respiratory Distress Cardiovascular: Regular Rate, Rhythm, No Murmur, Normal Peripheral Pulses Gastrointestinal: normal bowel sounds, non tender, soft (still soft, but not quite as soft as yesterday ), no organomegaly Extremity: Normal Range of Motion, No Calf Tenderness Neurologic/Psychiatric: Alert, Oriented x3, No Motor/Sensory Deficits, Normal Mood/Affect, 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 Partial small bowel obstruction; seems to be resolving 2. Abscess collection in right flank/abdomen - s/p IR drainage of samuel pus, sent to microbiology. No drainage of purulent fluid since initial drainage-- will d/c today Microbiology showed Strep Anginosus and an anaerobe. Pt has low WBC and no fever. Will probably send home on Keflex and Flagyl to be safe. 3. Anemia of chronic disease 4. Hx of Crohns- this is probably a stricture because of Crohn's started on Solumedrol; will now transition to PO prednisone D/C pt home, has appt with Dr. Casanova on Sunday. Continue soft diet, low residue. Ambulate and continue with protein supplementation. All questions answered to his and his mother's satisfaction. Clinical Quality Measures DVT/VTE Risk/Contraindication: Risk Factor Score Per Nursin RFS Level Per Nursing on Admit: 1=Low/No VTE PPX DARCI MAR DO Dec 21, 2016 11:13
[2016-12-21] MEDS ORDERED: predniSONE 20 MG TAB PO SCH (11:15)
[2016-12-21] MEDS ORDERED: PRD20T PO (11:20)
[2016-12-21] MEDS ORDERED: CEPH500T PO (11:20)
[2016-12-21] MEDS ORDERED: METR500T21 PO (11:20)
--- NOTE | 2016-12-21 11:24 | Discharge Inst-Surgical ---
Discharge Inst-Surgical Depart Medication/Instructions New, Converted or Re-Newed RX: Transmitted to Pharmacy Patient Instructions Follow up Appt: Make appointment for 1 week. [phone] Instructions: No strenuous activity. May shower, no baths. Skin/Wound Care: May remove bandages. You need to leave the white strips over incision on they will fall off on their own. Symptoms to Report: Appetite Changes, Extremity Discoloration, Numbness/Tingling, Swelling Increased , Bleeding Excessive, Eyesight Changes, Pain Increased, Urine Color Change, Constipation(Persistent), Fever over 101 degree F, Pain/Pressure in chest, Urinating Difficulty, Cough Up/Vomit Blood, Heart Beat Irreg/Pounding, Pain/ Pressure in jaw, Vaginal Bleeding Increase, Cramps in feet or legs, Lightheadedness, Pain/Pressure in shoulder, Diarrhea(Persistent), Memory Changes Suddenly, Questions/Concerns, Weight gain consecutive days, Dizziness/ Fainting, Nausea/Vomiting, Shortness of Breath, Weight gain over 2 pounds If questions or concerns contact your physician Or seek help at emergency department. Activity Activity as Tolerated: Yes Diet Discharge Diet: Low Residue If Any Problems/Questions/Issu: Contact Your Physician, Go to Emergency Room Skin/Wound Care Infection Signs and Symptoms: Increased Redness, Foul Odor of Wound, Increased Drainage, Skin Itchy or Has a Rash, Increased Swelling, Temperature Above 101 F DARCI MAR DO Dec 21, 2016 11:24
[2016-12-21] MEDS ORDERED: CATHETER FLUSH 10 ML SYR IV PRN (11:30)
[2016-12-21 12:10] VITALS: BP 105/64
[2016-12-21 13:15] VITALS: BP 105/64
[2016-12-21] MEDS ORDERED: CATHETER FLUSH 10 ML SYR IV SCH (14:00)
--- NOTE | 2017-01-10 14:26 | Discharge Summary ---
Diagnosis/Chief Complaint Date of Admission Dec 17, 2016 at 07:20 Date of Discharge Dec 21, 2016 at 13:15 Admission Diagnosis Admission Diagnosis Possible High Grade Small Bowel Obstruction Crohn's disease Intraabdominal abscess, possible perforation Discharge Diagnosis Same Reason Hospital Visit Pt is a 21-year-old young man who was brought to the emergency room by his mother with complaints of abdominal pain that started about 4 days ago and became intense last night around 01:00 am. Patient's history is sometimes a little bit distorted per his mother as he has mental retardation. He has a history of Crohn's disease and has had complications in the past including colitis with colon resection. He had an initial surgery at about 7 yo, mother is not exactly sure what was removed. He is on chronic immunosuppressive therapy; Remicade monthly and Azathioprine. He last saw his GI doctor (in [place]) appx 2 1/2 months ago and has appt at the end of this month. Last night he was afebrile but tachycardic. He denies any hematuria or hematochezia. Last night his pain was focused in the suprapubic and right lower quadrant regions. He still has abominal pain diffusely today. States he doesn't think he has ever had an episode like this; with abdominal distention he has now. Slight nausea, no vomiting. He did have BM yesterday. Rating the pain as 7 out of 10 , but goes up to 10 if he tries to walk. Mother said she hasn't seen him walk in 3-4 days because of pain. Discharge Summary Procedures: CT guided drainage of abdominal abscess Consultations Interventional Radiology Discharge Physical Examination Allergies: Coded Allergies: morphine (Verified Allergy, Unknown, 12/17/16) General Appearance: Oriented X3 Respiratory: Clear to Auscultation, Normal Air Movement Cardiovascular: Regular Rate, No Murmurs Abdominal: Normal Bowel Sounds, Soft, No Hepatosplenomegaly Hospital Course Patient presented to the hospital on December 17 and he was admitted for possible high-grade bowel obstruction. He was made nothing by mouth, started on IV hydration and antibiotics. On the he had a CT-guided drainage performed by interventional radiology. He slowly improved over the next 3 days; started having bowel movements was increased on his diet, started on steroids for his Crohn's disease to hopefully help his inflammation. This was after discussing with his physician who treats his Crohn's, from [facility]. Continued to improve slowly, there was no drainage from the drain site. Finally tolerating diet and having bowel movements and was discharged home in stable condition to follow-up immediately with his doctor in [place] on December 21. Please see hospital progress notes and labs for more detailed information. Discharge Instructions to patient/family Please see electonic discharge instructions given to patient. Discharge Medications Reviewed and agree with Discharge Medication list on patient's Discharge Instruction sheet Clinical Quality Measures DVT/VTE Risk/Contraindication: Risk Factor Score Per Nursin RFS Level Per Nursing on Admit: 1=Low/No VTE PPX DARCI MAR DO Jan 10, 2017 14:26
== END 2016-12-21 13:15 | disposition home or self-care (01) | DRG 389 ==
LOC: EDUNIT# 03:44 → ER 03:49 → OBSVTOIN 05:49 → 4TH 05:49 → INTOOBSV 05:49 → UNDOADMOB 05:49 → 4TH 07:20 → UNDODISIN 12-21 13:15
PROVIDERS: ADMIT Surgery; ATTEND Surgery
PROC: 0W9F30Z Drainage of Abdominal Wall with Drainage Device, Percutaneous Approach (ICD-10-PCS; principal; 2016-12-18)
DX: K56.69 Other intestinal obstruction (principal); K50.914 Crohn's disease, unspecified, with abscess; F79 Unspecified intellectual disabilities; D63.8 Anemia in other chronic diseases classified elsewhere; B95.4 Other streptococcus as the cause of diseases classified elsewhere
CPT/HCPCS: 36415; 74020; 74177; 77012; 80053; 83605; 83690; 85025; 85027; 85652; 86141; 87040; 87070; 87075; 87077; 87205; 96361; 96374; 96375; 96376